=== PATIENT | male | born 1950 | race Caucasian/White ===

== ENCOUNTER 2024-03-25 08:58 | Outpatient (CLI) | payer OTHER | END 2024-03-25 08:59 | disposition home or self-care (01) | LOC: CSHWCC 08:58 | PROVIDERS: ATTEND Nurse Practitioner Family | DX: I87.331 Chronic venous hypertension (idiopathic) with ulcer and inflammation of right lower extremity (principal); E11.622 Type 2 diabetes mellitus with other skin ulcer; L97.812 Non-pressure chronic ulcer of other part of right lower leg with fat layer exposed; L08.9 Local infection of the skin and subcutaneous tissue, unspecified; Z95.0 Presence of cardiac pacemaker; I25.810 Atherosclerosis of coronary artery bypass graft(s) without angina pectoris | CPT/HCPCS: 11042; G0463; 99215 ==

== ENCOUNTER 2024-04-08 15:40 | Outpatient (CLI) | payer OTHER | END 2024-04-08 15:41 | disposition home or self-care (01) | LOC: CSHWCC 15:40 | PROVIDERS: ATTEND Nurse Practitioner Family | DX: I87.313 Chronic venous hypertension (idiopathic) with ulcer of bilateral lower extremity (principal); E11.622 Type 2 diabetes mellitus with other skin ulcer; L97.812 Non-pressure chronic ulcer of other part of right lower leg with fat layer exposed; L97.822 Non-pressure chronic ulcer of other part of left lower leg with fat layer exposed; D50.9 Iron deficiency anemia, unspecified; I25.810 Atherosclerosis of coronary artery bypass graft(s) without angina pectoris; Z95.0 Presence of cardiac pacemaker | CPT/HCPCS: 97597 ==

== ENCOUNTER 2025-02-08 14:21 | Outpatient (CLI) | payer OTHER | END 2025-02-08 14:22 | disposition home or self-care (01) | LOC: CSHWCC 14:21 | PROVIDERS: ATTEND Nurse Practitioner Family | DX: I87.312 Chronic venous hypertension (idiopathic) with ulcer of left lower extremity (principal); E11.622 Type 2 diabetes mellitus with other skin ulcer; L97.822 Non-pressure chronic ulcer of other part of left lower leg with fat layer exposed; I25.810 Atherosclerosis of coronary artery bypass graft(s) without angina pectoris; D50.9 Iron deficiency anemia, unspecified; Z95.0 Presence of cardiac pacemaker | CPT/HCPCS: 11042 ==

== ENCOUNTER 2025-02-15 13:12 | Outpatient (CLI) | payer OTHER | END 2025-02-15 13:13 | disposition home or self-care (01) | LOC: CSHWCC 13:12 | PROVIDERS: ATTEND Nurse Practitioner Family | DX: I87.312 Chronic venous hypertension (idiopathic) with ulcer of left lower extremity (principal); E11.622 Type 2 diabetes mellitus with other skin ulcer; L97.822 Non-pressure chronic ulcer of other part of left lower leg with fat layer exposed; I25.810 Atherosclerosis of coronary artery bypass graft(s) without angina pectoris; D50.9 Iron deficiency anemia, unspecified; Z95.0 Presence of cardiac pacemaker ==